=== PATIENT | male | born 1955 | race Caucasian/White ===

== ENCOUNTER 2018-12-28 11:39 | Emergency (ER) | payer OTHER, SELFPAY ==
[2018-12-28 11:53] VITALS: BP 104/71; PULSE 80; RESP 18; TEMP 36.5; O2SAT 97
--- NOTE | 2018-12-28 12:10 | DI.RAD.S_ITS ---
PROCEDURE: XR KNEE LT 3V INDICATIONS: atraumatic left knee pain / swelling/ hot red TECHNIQUE: 3 views of the knee were acquired. COMPARISON: None. FINDINGS: Bones: No fractures or dislocations. No suspicious bony lesions. Mild degenerative changes of the knee are most pronounced within the patellofemoral compartment. Soft tissues: No joint effusion. No suspicious soft tissue calcifications. Prominent prepatellar soft tissue swelling is evident. IMPRESSION: 1. No acute left knee fracture. 2. Prominent prepatellar soft tissue swelling may be related to bursitis or cellulitis. The need for better characterization utilizing ultrasound or MRI may be determined clinically. Dictated by: Nelson Klein M.D. on 12/28/2018 at 11:50 Approved by: Nelson Klein M.D. on 12/28/2018 at 11:52
[2018-12-28 13:16] VITALS: BP 130/72; PULSE 70; RESP 18; O2SAT 97
[2018-12-28 13:21] LABS: Add Manual Diff / Slide Review NO; Basophils Absolute Auto 0 /uL (0-100); Basophils Percent Auto 0.4 % (0-2); Eosinophils Absolute Auto 100 /uL (0-450); Eosinophils Percent Auto 0.6 % (2-4); Hematocrit 40.8 % (41-53); Hemoglobin 14.1 g/dL (13.5-17.5); Lymphocytes Absolute Auto 1300 /uL (1100-4500); Lymphocytes Percent Auto 10.5 % (25-40); Mean Corpuscular HGB Conc 34.6 % (30-36); Mean Corpuscular Hemoglobin 29.7 PG (26-34); Mean Corpuscular Volume 85.6 fL (80-100); Monocytes Absolute Auto 900 /uL (0-900); Monocytes Percent Auto 7.9 % (3-14); Neutrophils Absolute Auto 9600 /uL (1500-7000); Neutrophils Percent Auto 80.6 % (50-75); Platelet Count 250 X10^3/uL (150-400); Red Blood Cell Count 4.76 X10^6/uL (4.5-5.9); Red Cell Distribution Width 13.1 % (11.6-14.8)
[2018-12-28 13:29] LABS: INR 1.1 (0.9-1.3); Prothrombin Time 13.2 SECONDS (10.1-12.7)
[2018-12-28 13:31] LABS: PTT Partial Thromboplastin Tim 29 SECONDS (26.4-36.2)
[2018-12-28 13:32] LABS: Lactate (Lactic Acid) 1.3 mmol/L (0.7-2.1)
[2018-12-28 13:36] LABS: Alanine Aminotransferase 35 IU/L (21-72); Albumin 3.9 g/dL (3.5-5.0); Albumin Globulin Ratio 1.4 (1.0-2.8); Alkaline Phosphatase 77 U/L (38-126); Aspartate Aminotransferase 19 IU/L (17-59); BUN Creatinine Ratio 18.8 (6-22); Bilirubin Total 0.7 mg/dL (0.2-1.3); Blood Urea Nitrogen 15 mg/dL (9-20); Calcium 9.4 mg/dL (8.4-10.2); Carbon Dioxide 28 mmol/L (22-32); Chloride 99 mmol/L (98-107); Estimated Glomerular Filt Rate > 60.0 mL/min (>60); Globulin 2.7 g/dL (1.7-4.1); Glucose 153 mg/dL (80-110); HEMOLYSIS < 15 (0-50); Lipase 28 U/L (23-300); Potassium 4.3 mmol/L (3.4-5.1); Sodium 137 mmol/L (137-145); Total Protein 6.6 g/dL (6.3-8.2); Uric Acid 2.6 mg/dL (3.5-8.5)
--- NOTE | 2018-12-28 13:40 | ED.EXTPRO ---
HPI - Extremity Problem General Chief complaint: Extremity Problem,Nontraumatic Stated complaint: Lt knee swollen Time Seen by Provider: 12/28/18 13:12 Source: patient Mode of arrival: ambulatory Limitations: no limitations History of Present Illness HPI Narrative: Patient is a 63-year-old male who presents with left knee swelling and pain. He has been chilled for last few days he thinks it started about 5 days ago. He is on his knees a lot doing some landscaping. He has got some erythema he has obvious swelling and effusion in his left knee. He is able to walk on it. No documented fever. He can bend it but difficult due to the swelling. MD Complaint: extremity pain and extremity swelling Pain Consistency: constant Location: left Related Data Home Medications Medication Instructions Recorded Confirmed ASCORBIC ACID (VITAMIN C) 500 mg PO Q DAY #0 09/23/11 CALCIUM CARBONATE/VITAMIN D3 1 tab PO BID #0 09/23/11 (Calcium 600 + Vit D 400 Tablet) Cyclobenzaprine Hydrochloride 10 mg PO PRN #0 09/23/11 (#FLEXERIL) Fish Oil (#OMEGA-3 FISH OIL) 1,200 mg PO TID #0 09/23/11 Garlic (GARLIC) 1,000 mg PO Q DAY #0 09/23/11 IBUPROFEN (#MOTRIN) 600 mg PO TID #0 09/23/11 MULTIVITAMIN (#MULTIPLE VITAMINS) 1 cap PO Q DAY #0 09/23/11 VITAMIN E (#E-400) 400 iu PO Q DAY #0 09/23/11 [COQ10] 100 mg OR BID #0 09/23/11 [VITAMIN D3] 1,000 iu OR BID #0 09/23/11 gabapentin [Neurontin] 300 mg PO TID #3 09/23/11 magnesium 200 mg PO BID #0 09/23/11 paroxetine HCl [Paxil] 10 mg PO Q DAY #0 09/23/11 Previous Rx's Medication Instructions Recorded prednisone 40 mg PO DAILY #10 tab 12/28/18 Allergies Allergy/AdvReac Type Severity Reaction Status Date / Time clindamycin Allergy Severe Anaphylaxis Verified 12/28/18 11:59 Sulfa (Sulfonamide Allergy Severe SWELLING/SO Verified 12/28/18 11:59 Antibiotics) B [SULFA (SULFONAMIDE ANTIBIOTICS)] hydrocodone [From VICODIN] AdvReac Mild MOOD SWINGS Verified 12/28/18 11:59 aspirin AdvReac Unknown Verified 12/28/18 11:59 Review of Systems Review of Systems GENERAL: Denies chills, fatigue, malaise, fever, sweats, travel HEENT: Denies sinus pain, ear pain, sore throat, difficulty swallowing, neck pain RESPIRATORY: Denies dyspnea, cough, wheezing, hemoptysis, sputum. CARDIOVASCULAR: Denies chest pain, palpitations, orthopnea, edema GASTROINTESTINAL: Denies nausea, vomiting, abdominal pain, diarrhea, constipation, melena. : Denies dysuria, frequency, incontinence, hematuria, urinary retention, flank pain. MUSCULOSKELETAL: See HPI SKIN: No rash, no erythema, no pruritus NEUROLOGIC: Denies weakness, dizziness, headache, numbness, change in speech, confusion PSYCHIATRIC: No concerning psychosocial issues. 12 point review of systems is negative except for those stated above and HPI [facility] Medical History Patient denies significant medical history (Acute) Social History Smoking Status: Former smoker Social History Smoking Status: Former smoker Exam Initial Vital Signs Initial Vital Signs: Vital Signs Temperature 97.7 F 12/28/18 11:53 Pulse Rate 80 12/28/18 11:53 Respiratory Rate 18 12/28/18 11:53 Blood Pressure 104/71 12/28/18 11:53 Pulse Oximetry 97 12/28/18 11:53 GENERAL: Well-appearing, well-nourished and in no acute distress. HEENT: Head atraumatic,EOMI, pupils reactive, face symmetric, moist mucous membranes CARDIOVASCULAR: Regular rate and rhythm without murmurs, rubs or gallops. RESPIRATORY: Breath sounds equal bilaterally, no wheezes rales or rhonchi. ABDOMEN: Soft, nontender. Normoactive bowel sounds all 4 quadrants. No guarding or rebound. EXTREMITIES: Normal range of motion, no clubbing or edema. Neurovascularly intact Left knee obvious prepatellar bursitis. Significant fluid. He does have some mild erythema superior all the knee. No streaking. He is able to flex the knee. It is slightly tender to touch. NEUROLOGICAL: Alert and oriented x4.Normal gait and speech. Cranial nerves II through XII grossly intact. SKIN: Warm, dry, no laceration, no petechiae, no rashes or lesions. Procedures Bursa Procedure Time Out Performed: Yes Side of body: left Site of Procedure: prepatellar bursa XRAY Obtained: normal Antisepsis Used: Chlorhexidine Local Anesthetic: lidocaine 1% Amount of anesthesia used (mL): 5 Fluid obtained (mL): 15 Fluid Type: clear and bloody Patient Tolerated Procedure: Well Complications: none Course Orders Ordered: Discontinued Medications Methylprednisolone (Solu-Medrol 125 Mg Vial) 125 mg IV NOW ONE Stop: 12/28/18 13:46 Last Admin: 12/28/18 13:59 Dose: 125 mg Vital Signs - 8 hr 12/28/18 11:53 12/28/18 13:16 Temperature 97.7 F Pulse Rate 80 70 Respiratory Rate 18 18 Blood Pressure 104/71 Blood Pressure [Right Arm] 130/72 Pulse Oximetry 97 97 MDM - Extremity (Nontraumatic) Lab Data Attestation: I reviewed the patient's lab results. Result diagrams: 12/28/18 13:09 12/28/18 13:09 Lab Results 12/28/18 12/28/18 12/28/18 Range/Units 13:09 13:09 13:09 WBC 12.0 H (4.5-11.0) X10^3/uL RBC 4.76 (4.5-5.9) X10^6/uL Hgb 14.1 (13.5-17.5) g/dL Hct 40.8 L (41-53) % MCV 85.6 (80-100) fL MCH 29.7 (26-34) PG MCHC 34.6 (30-36) % RDW 13.1 (11.6-14.8) % Plt Count 250 (150-400) X10^3/uL Neut % (Auto) 80.6 H (50-75) % Lymph % (Auto) 10.5 L (25-40) % [place] % (Auto) 7.9 (3-14) % Eos % (Auto) 0.6 L (2-4) % Baso % (Auto) 0.4 (0-2) % Neut # (Auto) 9600 H (8837-0257) /uL Lymph # (Auto) 1300 (1438-7680) /uL [place] # (Auto) 900 (0-900) /uL Eos # (Auto) 100 (0-450) /uL Baso # (Auto) 0 (0-100) /uL ESR 42 H (0-15) MM/HR PT 13.2 H (10.1-12.7) SECONDS INR 1.1 (0.9-1.3) APTT 29 (26.4-36.2) SECONDS Sodium 137 (137-145) mmol/L Potassium 4.3 (3.4-5.1) mmol/L Chloride 99 (98-107) mmol/L Carbon Dioxide 28 (22-32) mmol/L BUN 15 (9-20) mg/dL Creatinine 0.80 (0.66-1.25) mg/dL Estimated GFR > 60.0 (>60) mL/min BUN/Creatinine Ratio 18.8 (6-22) Glucose 153 H (80-110) mg/dL Lactate (0.7-2.1) mmol/L Uric Acid 2.6 L (3.5-8.5) mg/dL Calcium 9.4 (8.4-10.2) mg/dL Total Bilirubin 0.7 (0.2-1.3) mg/dL AST 19 (17-59) IU/L ALT 35 (21-72) IU/L Alkaline Phosphatase 77 (38-126) U/L Lactate Dehydrogenase (313-618) U/L C-Reactive Protein 20.9 H (<1.0) mg/dL Total Protein 6.6 (6.3-8.2) g/dL Albumin 3.9 (3.5-5.0) g/dL Globulin 2.7 (1.7-4.1) g/dL Albumin/Globulin Ratio 1.4 (1.0-2.8) Lipase 28 (23-300) U/L Procalcitonin (<0.5) ng/mL Fluid Color Fluid Appearance Fluid pH pH Fluid RBC /uL Fld Tot Nucleated Cell /uL Fluid Polynuclear WBCs % Fluid Mononuclear WBCs % Fluid Eosinophils Fluid Other Cells Body Fluid Clot Fluid Glucose mg/dL Fluid Total Protein g/dL Fluid LDH U/L 12/28/18 12/28/18 12/28/18 Range/Units 13:09 13:25 13:25 WBC (4.5-11.0) X10^3/uL RBC (4.5-5.9) X10^6/uL Hgb (13.5-17.5) g/dL Hct (41-53) % MCV (80-100) fL MCH (26-34) PG MCHC (30-36) % RDW (11.6-14.8) % Plt Count (150-400) X10^3/uL Neut % (Auto) (50-75) % Lymph % (Auto) (25-40) % [place] % (Auto) (3-14) % Eos % (Auto) (2-4) % Baso % (Auto) (0-2) % Neut # (Auto) (7916-7469) /uL Lymph # (Auto) (7677-6533) /uL [place] # (Auto) (0-900) /uL Eos # (Auto) (0-450) /uL Baso # (Auto) (0-100) /uL ESR (0-15) MM/HR PT (10.1-12.7) SECONDS INR (0.9-1.3) APTT (26.4-36.2) SECONDS Sodium (137-145) mmol/L Potassium (3.4-5.1) mmol/L Chloride (98-107) mmol/L Carbon Dioxide (22-32) mmol/L BUN (9-20) mg/dL Creatinine (0.66-1.25) mg/dL Estimated GFR (>60) mL/min BUN/Creatinine Ratio (6-22) Glucose (80-110) mg/dL Lactate 1.3 (0.7-2.1) mmol/L Uric Acid (3.5-8.5) mg/dL Calcium (8.4-10.2) mg/dL Total Bilirubin (0.2-1.3) mg/dL AST (17-59) IU/L ALT (21-72) IU/L Alkaline Phosphatase (38-126) U/L Lactate Dehydrogenase (313-618) U/L C-Reactive Protein (<1.0) mg/dL Total Protein (6.3-8.2) g/dL Albumin (3.5-5.0) g/dL Globulin (1.7-4.1) g/dL Albumin/Globulin Ratio (1.0-2.8) Lipase (23-300) U/L Procalcitonin (<0.5) ng/mL Fluid Color Bloody Fluid Appearance Cloudy Fluid pH 7.2 pH Fluid RBC 12848 /uL Fld Tot Nucleated Cell 66703 /uL Fluid Polynuclear WBCs 92 % Fluid Mononuclear WBCs 8 % Fluid Eosinophils Not Reportable Fluid Other Cells Not Reportable Body Fluid Clot No clots present Fluid Glucose 78 mg/dL Fluid Total Protein 3.1 g/dL Fluid LDH 4107 U/L 12/28/18 12/28/18 Range/Units 13:30 13:30 WBC (4.5-11.0) X10^3/uL RBC (4.5-5.9) X10^6/uL Hgb (13.5-17.5) g/dL Hct (41-53) % MCV (80-100) fL MCH (26-34) PG MCHC (30-36) % RDW (11.6-14.8) % Plt Count (150-400) X10^3/uL Neut % (Auto) (50-75) % Lymph % (Auto) (25-40) % [place] % (Auto) (3-14) % Eos % (Auto) (2-4) % Baso % (Auto) (0-2) % Neut # (Auto) (0745-6721) /uL Lymph # (Auto) (7306-9698) /uL [place] # (Auto) (0-900) /uL Eos # (Auto) (0-450) /uL Baso # (Auto) (0-100) /uL ESR (0-15) MM/HR PT (10.1-12.7) SECONDS INR (0.9-1.3) APTT (26.4-36.2) SECONDS Sodium (137-145) mmol/L Potassium (3.4-5.1) mmol/L Chloride (98-107) mmol/L Carbon Dioxide (22-32) mmol/L BUN (9-20) mg/dL Creatinine (0.66-1.25) mg/dL Estimated GFR (>60) mL/min BUN/Creatinine Ratio (6-22) Glucose (80-110) mg/dL Lactate (0.7-2.1) mmol/L Uric Acid (3.5-8.5) mg/dL Calcium (8.4-10.2) mg/dL Total Bilirubin (0.2-1.3) mg/dL AST (17-59) IU/L ALT (21-72) IU/L Alkaline Phosphatase (38-126) U/L Lactate Dehydrogenase 374 (313-618) U/L C-Reactive Protein (<1.0) mg/dL Total Protein (6.3-8.2) g/dL Albumin (3.5-5.0) g/dL Globulin (1.7-4.1) g/dL Albumin/Globulin Ratio (1.0-2.8) Lipase (23-300) U/L Procalcitonin 0.06 (<0.5) ng/mL Fluid Color Fluid Appearance Fluid pH pH Fluid RBC /uL Fld Tot Nucleated Cell /uL Fluid Polynuclear WBCs % Fluid Mononuclear WBCs % Fluid Eosinophils Fluid Other Cells Body Fluid Clot Fluid Glucose mg/dL Fluid Total Protein g/dL Fluid LDH U/L Imaging Data left knee: Radiologist's impression: PROCEDURE: XR KNEE LT 3V INDICATIONS: atraumatic left knee pain / swelling/ hot red TECHNIQUE: 3 views of the knee were acquired. COMPARISON: None. FINDINGS: Bones: No fractures or dislocations. No suspicious bony lesions. Mild degenerative changes of the knee are most pronounced within the patellofemoral compartment. Soft tissues: No joint effusion. No suspicious soft tissue calcifications. Prominent prepatellar soft tissue swelling is evident. IMPRESSION: 1. No acute left knee fracture. 2. Prominent prepatellar soft tissue swelling may be related to bursitis or cellulitis. The need for better characterization utilizing ultrasound or MRI may be determined clinically. Dictated by: Nelson Klein M.D. on 12/28/2018 at 11:50 Approved by: Nelson Klein M.D. on 12/28/2018 at 11:52 MDM Narrative Medical decision making narrative: Patient does not appear to have a septic knee. This is all likely inflammatory and prepatellar bursitis. It is feeling better after some of the fluid has been drained off. He has minimal erythema no fevers he is able to flex and extend his knee. At this time I do not think antibiotics are indicated. He cannot take any NSAIDs he says that he ?bleed out so I will put him on some prednisone. Discussed with he and his specific warning signs of when to return to the ED. I discussed all findings with the patient and , Education has been performed regarding treatment plan, diagnosis, warning signs and symptoms and all concerns have been addressed. Verbally agree with and understood all of the above. Discharge Plan Departure Patient Disposition: Home Clinical Impression: Bursitis, prepatellar, left Discharge Date/Time: 12/28/18 16:06 Interventions: ED Discharge Assessment Last Done: 12/28/18 16:05 Instructions: DI for Bursitis Activity Restrictions/Additional Instructions: *You have been diagnosed with left prepatellar bursitis *What to do: At this time does not appear that he needed antibiotics. *Continue to take medications as directed Prednisone 40 mg once a day for 5 days *Follow up with your primary care provider in 2-3 days *Return to ER if you should have inability to stand on knee, knee redness, fever or any new, worsening or concerning symptoms Prescriptions: New prednisone 20 mg tablet 40 mg PO DAILY Qty: 10 RF: 0 No Action gabapentin [Neurontin] 300 MG capsule 300 mg PO TID Qty: 3 RF: 0 Cyclobenzaprine Hydrochloride (#FLEXERIL) 10 mg PO PRN Qty: 0 RF: 0 paroxetine HCl [Paxil] 10 MG tablet 10 mg PO Q DAY Qty: 0 RF: 0 IBUPROFEN (#MOTRIN) 600 mg PO TID Qty: 0 RF: 0 MULTIVITAMIN (#MULTIPLE VITAMINS) 1 cap PO Q DAY Qty: 0 RF: 0 CALCIUM CARBONATE/VITAMIN D3 (Calcium 600 + Vit D 400 Tablet) 1 tab PO BID Qty: 0 RF: 0 ASCORBIC ACID (VITAMIN C) 500 mg PO Q DAY Qty: 0 RF: 0 Garlic (GARLIC) 1,000 mg PO Q DAY Qty: 0 RF: 0 VITAMIN E (#E-400) 400 iu PO Q DAY Qty: 0 RF: 0 magnesium 200 MG tablet 200 mg PO BID Qty: 0 RF: 0 Fish Oil (#OMEGA-3 FISH OIL) 1,200 mg PO TID Qty: 0 RF: 0 [COQ10] 100 mg OR BID Qty: 0 RF: 0 [VITAMIN D3] 1,000 iu OR BID Qty: 0 RF: 0 Referrals: Brandt Pryor MD [Primary Care Provider] -
[2018-12-28 13:43] LABS: Erythrocyte Sedimentation Rate 42 MM/HR (0-15)
[2018-12-28 13:48] LABS: C-Reactive Protein Quant 20.9 mg/dL (<1.0)
[2018-12-28] MEDS: methylPREDNISolone 125 MG/2 ML VIAL IV (13:59)
[2018-12-28 14:00] LABS: Glucose Body Fluid 78 mg/dL; Total Protein Body Fluid 3.1 g/dL
[2018-12-28 14:02] LABS: Lactate Dehydrogenase 374 U/L (313-618)
[2018-12-28 14:22] LABS: Body Fluid Appearance CLOUDY; Body Fluid Color BLOODY
[2018-12-28 14:23] LABS: Body Fluid Clotted? NO CLOTS PRESENT; Body Fluid Tot Nucleated Cells 22295 /uL
[2018-12-28 14:24] LABS: Body Fluid Red Blood Cells 77967 /uL
[2018-12-28 14:29] LABS: pH Body Fluid 7.2 pH
[2018-12-28 14:32] LABS: Mononuclear WBC Body Fluid 8 %; Polynuclear WBC Body Fluid 92 %
[2018-12-28 14:35] LABS: Procalcitonin 0.06 ng/mL (<0.5)
[2018-12-28 15:14] LABS: LDH Body Fluid 4107 U/L
== END 2018-12-28 16:06 | disposition home or self-care (01) ==
PROVIDERS: Emergency Provider Emergency Medicine; PCP Family Medicine
DX: M70.42 Prepatellar bursitis, left knee (principal)
CPT/HCPCS: 20610; 36415; 36591; 73562; 80053; 82945; 83605; 83615; 83690; 83986; 84145; 84157; 84550; 85025; 85610; 85651; 85730; 86140; 87040; 87070; 87075; 87077; 87186; 87205; 89051; 96374; 99282; 99284; J2930

== ENCOUNTER 2018-12-31 19:34 | Emergency (ER) | payer OTHER, SELFPAY ==
[2018-12-31 19:44] VITALS: BP 154/84; PULSE 71; RESP 16; TEMP 36.3; O2SAT 94; BMI 29.7
--- NOTE | 2018-12-31 20:06 | ED_ITS ---
HPI - Recheck/Abnormal Lab/Rx General Chief Complaint: Recheck/Abnormal Lab/Rx Stated Complaint: FOLLOW UP Time Seen by Provider: 12/31/18 19:59 Source: patient Mode of arrival: ambulatory Limitations: no limitations History of Present Illness HPI narrative: Patient is a 63-year-old male who was seen here in the emergency department several days ago for concerns of a septic joint/septic bursitis. He had an aspiration of the peripatellar bursa which was sent to the lab. He was sent home with steroids which he states he has 2 days left on this. He was called to return to the emergency department because the culture of the fluid that was obtained resulted positive for Staph aureus. Patient states that since his last visit here in the emergency department he has been taking the prednisone. He reports that his symptoms have greatly improved since the last visit. He states that the swelling has improved. The redness is improved. Still having some discomfort with bending his knee but it is much better than what it was before. No fevers. Related Data Home Medications Medication Instructions Recorded Confirmed ASCORBIC ACID (VITAMIN C) 500 mg PO Q DAY #0 09/23/11 CALCIUM CARBONATE/VITAMIN D3 1 tab PO BID #0 09/23/11 (Calcium 600 + Vit D 400 Tablet) Cyclobenzaprine Hydrochloride 10 mg PO PRN #0 09/23/11 (#FLEXERIL) Fish Oil (#OMEGA-3 FISH OIL) 1,200 mg PO TID #0 09/23/11 Garlic (GARLIC) 1,000 mg PO Q DAY #0 09/23/11 IBUPROFEN (#MOTRIN) 600 mg PO TID #0 09/23/11 MULTIVITAMIN (#MULTIPLE VITAMINS) 1 cap PO Q DAY #0 09/23/11 VITAMIN E (#E-400) 400 iu PO Q DAY #0 09/23/11 [COQ10] 100 mg OR BID #0 09/23/11 [VITAMIN D3] 1,000 iu OR BID #0 09/23/11 gabapentin [Neurontin] 300 mg PO TID #3 09/23/11 magnesium 200 mg PO BID #0 09/23/11 paroxetine HCl [Paxil] 10 mg PO Q DAY #0 09/23/11 Previous Rx's Medication Instructions Recorded prednisone 40 mg PO DAILY #10 tab 12/28/18 Allergies Allergy/AdvReac Type Severity Reaction Status Date / Time clindamycin Allergy Severe Anaphylaxis Verified 12/28/18 11:59 Sulfa (Sulfonamide Allergy Severe SWELLING/SO Verified 12/28/18 11:59 Antibiotics) B [SULFA (SULFONAMIDE ANTIBIOTICS)] hydrocodone [From VICODIN] AdvReac Mild MOOD SWINGS Verified 12/28/18 11:59 aspirin AdvReac Unknown Verified 12/28/18 11:59 Review of Systems Constitutional Denies fever(s) Cardiovascular Denies chest pain and Denies dyspnea Respiratory Denies dyspnea Gastrointestinal Gastrointestinal: Denies abdominal pain Genitourinary Denies dysuria Musculoskeletal Comments: Left knee pain and mild swelling Integumentary/Breasts Comments: Improvement of the redness the left knee Neurologic Denies behavioral changes Psychiatric Denies behavioral changes Hematologic/Lymphatic Denies easy bleeding and Denies easy bruising Allergic/Immunologic Denies urticaria [facility] Medical History Patient denies significant medical history (Acute) Social History Smoking Status: Former smoker Exam Initial Vital Signs Initial Vital Signs: Vital Signs Temperature 97.3 F L 12/31/18 19:44 Pulse Rate 71 12/31/18 19:44 Respiratory Rate 16 12/31/18 19:44 Blood Pressure 154/84 H 12/31/18 19:44 Pulse Oximetry 94 12/31/18 19:44 Const General: cooperative, comfortable, well developed, well groomed and No acute distress Orientation: alert and awake Resp Effort & Inspection: normal respiratory effort Cardio Rate: regular rate Skin Lesions: no lesions Rashes: no rashes Other: No redness of the skin over the left knee Neuro Sensory Exam: no sensory deficits noted Extrem Other: Patient with swelling around the patella of the left knee. This is somewhat tender to palpation of he states that is improved from before. He has no hamstring her medial lateral joint line tenderness. He is able to strain his needle 180? and flex his knee to past 90? with minimal discomfort. He states this is much better than what it was a couple days ago. No tenderness to palpation over the patella tendon. Course Vital Signs - 8 hr 12/31/18 19:44 12/31/18 21:00 Temperature 97.3 F L Pulse Rate 71 68 Respiratory Rate 16 18 Blood Pressure 154/84 H 155/84 H Pulse Oximetry 94 94 MDM - Recheck/Abnormal Lab/Rx MDM Narrative Medical decision making narrative: Per patient's report he is much improved from a couple days ago. He states he has had this exact situation happened in the past but it has been to his right knee. He is afebrile. A review of the culture shows moderate growth of Staph aureus. Review of the 1st note states that the aspiration was of the bursa not of the joint space. His physical exam today would be more consistent with a bursitis rather than a septic arthritis. I do feel that despite the Staph aureus in the fluid the fact that the patient has significantly improved in symptoms since his last visit and the fact that he has been on steroids which has not worsened his symptoms that we will hold on any antibiotics for now. I did discuss this with the patient and his her bedside. We did discuss the concerns about a septic joint versus septic bursitis. We also discussed that this could be inflammatory or traumatic. They expressed understanding of this and agreed that since the symptoms were improving would be less likely infectious. He was given a phone number to contact the Orthopedic group here in [facility] for follow-up pole also contact his primary provider. Was given return precautions and follow-up instructions. He expressed understanding and agreement with plan. Discharge Plan Departure Patient Disposition: Home Clinical Impression: Bursitis, prepatellar, left Discharge Date/Time: 12/31/18 21:00 Interventions: ED Discharge Assessment Last Done: 12/31/18 21:00 Instructions: Bursitis Activity Restrictions/Additional Instructions: Continue the steroids until they are gone as directed. Tomorrow contact your primary provider for a follow-up. You can also contact the [facility]opedic group at [phone] for follow-up. Return to the emergency department for any new symptoms, worsening pain, fevers, or any other concerning symptoms. Prescriptions: No Action gabapentin [Neurontin] 300 MG capsule 300 mg PO TID Qty: 3 RF: 0 Cyclobenzaprine Hydrochloride (#FLEXERIL) 10 mg PO PRN Qty: 0 RF: 0 paroxetine HCl [Paxil] 10 MG tablet 10 mg PO Q DAY Qty: 0 RF: 0 IBUPROFEN (#MOTRIN) 600 mg PO TID Qty: 0 RF: 0 MULTIVITAMIN (#MULTIPLE VITAMINS) 1 cap PO Q DAY Qty: 0 RF: 0 CALCIUM CARBONATE/VITAMIN D3 (Calcium 600 + Vit D 400 Tablet) 1 tab PO BID Qty: 0 RF: 0 ASCORBIC ACID (VITAMIN C) 500 mg PO Q DAY Qty: 0 RF: 0 Garlic (GARLIC) 1,000 mg PO Q DAY Qty: 0 RF: 0 VITAMIN E (#E-400) 400 iu PO Q DAY Qty: 0 RF: 0 magnesium 200 MG tablet 200 mg PO BID Qty: 0 RF: 0 Fish Oil (#OMEGA-3 FISH OIL) 1,200 mg PO TID Qty: 0 RF: 0 [COQ10] 100 mg OR BID Qty: 0 RF: 0 [VITAMIN D3] 1,000 iu OR BID Qty: 0 RF: 0 prednisone 20 mg tablet 40 mg PO DAILY Qty: 10 RF: 0 Referrals: Brandt Pryor MD [Primary Care Provider] -
[2018-12-31 21:00] VITALS: BP 155/84; PULSE 68; RESP 18; O2SAT 94
== END 2018-12-31 21:00 | disposition home or self-care (01) ==
PROVIDERS: Emergency Provider Emergency Medicine; PCP Family Medicine
DX: M70.42 Prepatellar bursitis, left knee (principal)
CPT/HCPCS: 99282

== ENCOUNTER → 2025-05-10 11:44 | Outpatient (CLI) | payer MEDICARE, SELFPAY ==
--- NOTE | 2025-05-10 12:09 | DI.MRI.S_ITS ---
PROCEDURE: MR LUMBAR SPINE WO CON INDICATIONS: lumbar spondylosis TECHNIQUE: Noncontrast sagittal T1 spin echo and T2 fast echo, sagittal STIR, and T2 fast spin echo through the lumbar spine. In cases with scoliosis, additional coronal T2 fast spin echo may be performed. COMPARISON: None. FINDINGS: Image quality: Excellent. Alignment and Curvature: There is minimal grade 1 anterolisthesis at the L4-L5 level. Bone Marrow: Marrow is of normal overall signal. No acute vertebral body compression fractures. Spinal Cord: Conus medullaris terminates at the L1 level. Visualized cord demonstrates normal signal and size. Paraspinous Soft Tissues: No paravertebral masses. T12-L1: Normal appearance. L1-L2: Normal appearance. L2-L3: Mild loss of disc height is seen. Loss of disc signal is seen. Mild to moderate disc bulge is seen. Mild to moderate facet hypertrophy is seen. There is mild right-sided and moderate left-sided neural narrowing. Minimal central canal narrowing is seen. L3-L4: The disc height is well-preserved. Loss of disc signal is seen at this level. Moderate generalized disc bulge is seen. There is a superimposed central disc protrusion. Moderate facet joint hypertrophy is seen. Moderate bilateral neural foraminal narrowing can be seen, left worse than right. Mild central canal narrowing is seen. L4-L5: Mild loss of disc height is seen. Loss of disc signal is seen. Moderate generalized disc bulge is seen. There is a superimposed central disc protrusion. At least moderate facet hypertrophy is seen. Fluid is seen within the facet joints themselves. There is moderate right-sided neural narrowing. On the left, there is moderate to severe neural narrowing with associated compression upon the exiting left L4 nerve root. Moderate central canal narrowing is seen. L5-S1: Moderate loss of disc height is seen. Loss of disc signal is seen. Mild generalized disc bulge is seen. There is a superimposed central disc protrusion. Fissure Mild facet joint hypertrophy is seen. There is moderate left-sided and no right-sided neural narrowing. [id number] central canal narrowing is seen which is partially caused by epidural lipomatosis. IMPRESSION: Focal lower lumbar spine degenerative changes are seen, including moderate to severe left-sided neural narrowing at L4-L5 with associated compression upon the exiting left L4 nerve root. Dictated by: Mu Ramírez M.D. on 05/12/2025 at 13:41 Approved by: Mu Ramírez M.D. on 05/12/2025 at 13:44
== END ==
LOC: MRI 11:45
PROVIDERS: PCP Family Medicine; Referring Provider Acupuncturist; Visit Provider Acupuncturist
DX: M47.816 Spondylosis without myelopathy or radiculopathy, lumbar region (principal); M47.817 Spondylosis without myelopathy or radiculopathy, lumbosacral region; M51.369 Other intervertebral disc degeneration, lumbar region without mention of lumbar back pain or lower extremity pain; M51.379 Other intervertebral disc degeneration, lumbosacral region without mention of lumbar back pain or lower extremity pain; M48.061 Spinal stenosis, lumbar region without neurogenic claudication; M48.07 Spinal stenosis, lumbosacral region; E88.2 Lipomatosis, not elsewhere classified; M48.8X7 Other specified spondylopathies, lumbosacral region
CPT/HCPCS: 72148